=== PATIENT | female | born 1990 | race Caucasian/White ===

== ENCOUNTER 2019-05-08 15:14 | Inpatient (IN) | payer MEDICAID ==
[2019-05-08] MEDS ORDERED: Ondansetron 4 MG/2 ML SDV IVPUSH PRN (15:34)
[2019-05-08] MEDS ORDERED: Sodium Chloride 0.9% 10 ML Syringe FLUSH PRN (15:34)
[2019-05-08] MEDS ORDERED: Ampicillin 2 GM in Sodium Chloride 0.9% 100 ML IV ONE (15:34)
[2019-05-08] MEDS ORDERED: Oxytocin/Lactated Ringers 10 UNIT/1,000 ML BAG IV SCH ×2 (15:45)
[2019-05-08] MEDS ORDERED: Ampicillin 2 GM AdvVial IV ONE (15:48)
[2019-05-08] MEDS ORDERED: Lactated Ringers 1,000 ML ONE (15:48)
[2019-05-08] MEDS: Lactated Ringers 1,000 ML IV SCH (16:05)
--- NOTE | 2019-05-08 16:32 | PCM.LDHP ---
L&D History of Present Illness - General Date of Service: 05/08/19 Admit Problem/Dx: Patient Status Order with Admit Dx/Problem 05/08/19 15:36 Patient Status [ADT] Routine Admission Diagnosis/Problem Admission Diagnosis/Problem Source of Information: Patient History Limitations: Reports: No Limitations - History of Present Illness Introduction:: Amina Lim is a 28 year old female at 37 weeks 1 day by LMP (HORACIO 05/28/2019 ) who presents with spontaneous rupture membranes with clear fluid. She reports that she had a larger gush of clear fluid mixed with cream-colored discharge at around 9:30 AM. She has had intermittent clear fluid discharge throughout the day since her initial gush of fluid. She was seen by Dr. Soria in the clinic earlier today and was diagnosed with spontaneous rupture membranes on speculum exam with fluid coming from the cervix with pooling and positive nitrazine test. AmniSure test was not performed due to gross rupture of membranes on exam. She reports that she has been having irregular mild cramps since her water had broken about every 1-2 hours between contractions. She reports good movement. She denies any vaginal bleeding. Timing/Duration: Reports: sudden onset (At around 9:30 AM), intermittent ( Additional gushes of clear fluid after initial episode of water breaking) Location, : Reports: Lower back, Pelvic Quality: Reports: Throbbing Severity: Mild Improves with: Reports: None Worsens with: Reports: None Associated Symptoms: Reports: vaginal fluid, moderate amount. Denies: vaginal bleeding, vaginal discharge Present Illness Comments:: Amina Lim is a 28-year-old at 37 weeks 1 day by LMP (HORACIO 05/28/2019) who presents with spontaneous rupture of membranes. She has had routine care with Dr. Patrick starting at 10 weeks gestational age. She received flu vaccine on 02/18/2019 and Tdap on 03/02/2019. Her is complicated by: * GBS positive status based on swab. * History of genital herpes and was started on acyclovir at 35 weeks 5 days. Reports that her last outbreak was at around 33 to 34 weeks gestational age. Denies any prodromal symptoms at this time. * Gastroesophageal reflux disease in and has been using Tums to control her symptoms labs Blood type: O+ Antibody screen: Negative First trimester hematocrit/hemoglobin: 37.4%/12.8 on 11/05/2018 Platelets: 398 on 11/05/2018 Urine culture: Mixed gaurav consistent with contamination Rubella status: Immune Hepatitis B surface antigen: Negative RPR: Negative HIV: Negative Gonorrhea: Negative Chlamydia: Negative One hour glucose tolerance test: 115 Second trimester hematocrit/hemoglobin: 12.0 on 03/02/2019 Platelets: 368 on 03/02/2019 GBS status: Positive - Related Data Allergies/Adverse Reactions: Allergies Allergy/AdvReac Type Severity Reaction Status Date / Time No Known Allergies Allergy Verified 05/08/19 15:31 Home Medications: Home Meds Acyclovir 400 mg PO TID 05/08/19 [History] Calcium Carbonate [Tums] 500 mg PO 05/08/19 [History] Vits #93/Iron Fum/FA [ Formula Tablet] 05/08/19 [History] Past Medical History Genitourinary History: Reports: STD, Other (See Below) Other Genitourinary History: genital herpes 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 Para: 0 - Past Surgical History HEENT Surgical History: Reports: Oral Surgery, Tonsillectomy Musculoskeletal Surgical History: Reports: Other (See Below) Other Musculoskeletal Surgeries/Procedures:: pinky surgery 6 years ago Dermatological Surgical History: Reports: Skin Biopsy Social & Family History - Tobacco Use Smoking Status *Q: Never Smoker - Tobacco Core Measures Tobacco Use/Smoking Within Last 30 Days: No Smokeless Tobacco Use in Last 30 Days: No - Alcohol Use Alcohol Use History: No - Recreational Drug Use Recreational Drug Use: No Drug Use in Last 12 Months: No - Living Situation & Occupation Living situation: Reports: Single, with Significant Other Occupation: Employed H&P Review of Systems - Review of Systems: Review Of Systems: See Below General: Denies: Fever, Chills, Malaise, Weakness, Fatigue HEENT: Reports: Sinus Congestion. Denies: Rhinitis, Post Nasal Drip, Sore Throat, Visual Changes Pulmonary: Denies: Shortness of Breath, Wheezing, Pleuritic Chest Pain, Cough Cardiovascular: Denies: Chest Pain, Palpitations Gastrointestinal: Reports: Constipation (mild), Nausea. Denies: Abdominal Pain , Diarrhea, Vomiting Genitourinary: Denies: Dysuria, Frequency, Burning, Pain, Urgency Musculoskeletal: Denies: Back Pain Skin: Denies: Rash, Lesions Psychiatric: Denies: Depression, Anxiety Neurological: Denies: Headache L&D Exam - Exam Exam: See Below - Vital Signs Vital Signs: Last Vital Signs Temp 36.9 C 05/08/19 15:23 Pulse 120 H 05/08/19 15:23 Resp 16 05/08/19 15:23 BP 123/94 H 05/08/19 15:23 Pulse Ox 97 05/08/19 15:23 Weight: 103.6 kg - OB Specific Contraction Duration (sec): 30-60 Contraction Frequency (min): 2-3 Contraction Intensity: Mild Movement: Active Heart Tones: Present Heart Tones per Min: 145 (+15 x 15 accelerations, no decelerations) Heart Rate (FHR) Variability: Moderate (6-25 bmp) Presentation: Vertex Estimated Weight: 7.5-8 pounds by Gilson - Fatima Score Fatima Score Cervix Position: Anterior Fatima Score Consistency: Medium Fatima Score Effacement: >80% (80%) Fatima Score Dilation: 1-2 cm (2.5 cm) Fatima Score 's Station: -3 Fatima Score Total: 7 - Exam General: Alert, Oriented HEENT: Conjunctiva Clear, EOMI Neck: Supple, Trachea Midline Lungs: Clear to Auscultation, Normal Respiratory Effort Cardiovascular: Regular Rate, Regular Rhythm GI/Abdominal Exam: Soft, Non-Tender, No Distention, Other (Gravid). No: Guarding, Rigid, Rebound Genitourinary: Normal external exam Extremities: Normal Inspection, Pedal Edema (1+ on bilateral lower extremities to knees) Skin: Warm, Dry, Intact Psychiatric: Alert, Normal Affect, Normal Mood - Patient Data Lab Results Last 24 hrs: Laboratory Results - last 24 hr 05/08/19 Range/Units 15:47 WBC 16.20 H (3.98-10.04) K/mm3 RBC 4.19 (3.98-5.22) M/mm3 Hgb 11.9 D (11.2-15.7) gm/dl Hct 36.5 (34.1-44.9) % MCV 87.1 D (79.4-94.8) fl MCH 28.4 (25.6-32.2) pg MCHC 32.6 (32.2-35.5) g/dl RDW Std Deviation 41.6 (36.4-46.3) fL Plt Count 366 D (182-369) K/mm3 MPV 8.5 L (9.4-12.3) fl Neut % (Auto) 70.7 (34.0-71.1) % Lymph % (Auto) 20.2 (19.3-51.7) % [place] % (Auto) 7.0 (4.7-12.5) % Eos % (Auto) 1.6 (0.7-5.8) Baso % (Auto) 0.1 (0.1-1.2) % Neut # (Auto) 11.44 H (1.56-6.13) K/mm3 Lymph # (Auto) 3.27 (1.18-3.74) K/mm3 [place] # (Auto) 1.14 H (0.24-0.36) K/mm3 Eos # (Auto) 0.26 (0.04-0.36) K/mm3 Baso # (Auto) 0.02 (0.01-0.08) K/mm3 Result Diagrams: 05/08/19 15:47 - Problem List (1) 37 weeks gestation of SNOMED Code(s): 60223860 ICD Code: Z3A.37 - 37 WEEKS GESTATION OF Status: Acute Current Visit: Yes (2) History of herpes genitalis SNOMED Code(s): 909969329 ICD Code: Z86.19 - PERSONAL HISTORY OF OTHER INFECTIOUS AND PARASITIC DISEASES Status: Acute Current Visit: Yes (3) GBS (group B Streptococcus carrier), +RV culture, currently SNOMED Code(s): 7359968053839, 252625162, 4129289870703 ICD Code: O99.820 - STREPTOCOCCUS B CARRIER STATE COMPLICATING Status: Acute Current Visit: Yes (4) Gastroesophageal reflux in SNOMED Code(s): 36590337055492997 ICD Code: O99.619 - DISEASES OF THE DGSTV SYS COMP , UNSP TRIMESTER ; K21.9 - GASTRO-ESOPHAGEAL REFLUX DISEASE WITHOUT ESOPHAGITIS Status: Acute Current Visit: Yes Problem List Initiated/Reviewed/Updated: Yes Orders Last 24hrs: Active Orders 24 hr Category Date Time Status Patient Status [ADT] Routine ADT 05/08/19 15:36 Active Activity as Tolerated [RC] PFP Care 05/08/19 15:36 Active Communication Order [RC] ASDIRECTED Care 05/08/19 15:36 Active Heart Tones [RC] ASDIRECTED Care 05/08/19 15:37 Active Non Stress Test [RC] PER UNIT ROUTINE Care 05/08/19 15:36 Active Notify Provider [RC] PFP Care 05/08/19 15:36 Active Notify Provider [RC] PRN Care 05/08/19 15:36 Active Peripheral IV Care [RC] . DIRECTED Care 05/08/19 15:37 Active Vital Signs [RC] PER UNIT ROUTINE Care 05/08/19 15:36 Active Regular Diet [DIET] Diet 05/08/19 Dinner Active BLOOD BANK HOLD SPECIMEN [BBK] Routine Lab 05/08/19 15:34 Ordered RAPID PLASMA REAGIN,RPR [CHEM] Routine Lab 05/08/19 15:47 Received Ampicillin 1 gm Med 05/08/19 20:00 Active Sodium Chloride 0.9% [Normal Saline] 100 ml IV Q4H Lactated Ringers [Ringers, Lactated] 1,000 ml Med 05/08/19 15:45 Active IV ASDIRECTED Nalbuphine [Nubain] Med 05/08/19 15:34 Active 10 mg IVPUSH Q2H PRN Ondansetron [Zofran] Med 05/08/19 15:34 Active 4 mg IVPUSH Q4H PRN Oxytocin/Lactated Ringers [Pitocin in LR 10 Units/1,000 Med 05/08/19 15:45 Active ML] 10 unit in 1,000 ml IV .CONTINUOUS Oxytocin/Lactated Ringers [Pitocin in LR 10 Units/1,000 Med 05/08/19 15:45 Active ML] 10 unit in 1,000 ml IV TITRATE Sodium Chloride 0.9% [Saline Flush] Med 05/08/19 15:34 Active 10 ml FLUSH ASDIRECTED PRN Electronic Heart Tones Ext w TOCO [WOMSER] Oth 05/08/19 15:36 Ordered Routine Electronic Heart Tones Internal [WOMSER] Per Unit Oth 05/08/19 15:36 Ordered Routine Peripheral IV Insertion Adult [OM.PC] Routine Oth 05/08/19 15:36 Ordered Resuscitation Status Routine Resus Stat 05/08/19 15:34 Ordered Medication Orders Ampicillin Sodium 1 gm/ Sodium (Chloride) 100 mls @ 200 mls/hr IV Q4H BRUNILDA Lactated Ringer's (Ringers, Lactated) 1,000 mls @ 100 mls/hr IV ASDIRECTED BRUNILDA Last Admin: 05/08/19 16:05 Dose: 100 mls/hr Oxytocin/Lactated Ringer's (Pitocin In Lr 10 Units/1,000 Ml) 10 unit in 1,000 mls @ 500 mls/hr IV .CONTINUOUS BRUNILDA Oxytocin/Lactated Ringer's (Pitocin In Lr 10 Units/1,000 Ml) 10 unit in 1,000 mls @ 12 mls/hr IV TITRATE BRUNILDA; Protocol Last Admin: 05/08/19 16:05 Dose: 2 munits/min, 12 mls/hr Nalbuphine HCl (Nubain) 10 mg IVPUSH Q2H PRN PRN Reason: Pain Ondansetron HCl (Zofran) 4 mg IVPUSH Q4H PRN PRN Reason: Nausea/Vomiting Sodium Chloride (Saline Flush) 10 ml FLUSH ASDIRECTED PRN PRN Reason: Keep Vein Open Assessment/Plan Comment:: Refer to observation for spontaneous rupture of membranes Start Pitocin for augmentation of labor due to very irregular contractions per patient report every 1-[address] IV and have Lactated Ringer's at 125 ml/hr May have small amounts of regular diet Activity as tolerated May have epidural as desired Plans to breast-feed after delivery Start on ampicillin 2 g now and have 1 g every 4 hours after for GBS prophylaxis Anticipate vaginal delivery unless otherwise indicated Chucho Ventura MD 4:51 PM 05/08/2019
[2019-05-08] MEDS: Ampicillin 1 GM in Sodium Chloride 0.9% 100 ML IV SCH (20:17)
[2019-05-08] MEDS: Calcium Carbonate 500 MG Tab.Chew PO PRN (22:46)
[2019-05-09] MEDS ORDERED: fentaNYL 100 MCG/2 ML SDV ONE
[2019-05-09] MEDS: Ampicillin 1 GM in Sodium Chloride 0.9% 100 ML IV SCH ×5 (00:17→16:16)
[2019-05-09] MEDS: Calcium Carbonate 500 MG Tab.Chew PO PRN ×2 (00:52→03:00)
[2019-05-09] MEDS ORDERED: Oxytocin/Lactated Ringers 20 UNIT/1,000 ML BAG IV SCH (02:30)
[2019-05-09] MEDS: Nalbuphine 10 MG/ML Syringe IVPUSH PRN ×2 (06:13→12:17)
[2019-05-09] MEDS: Lactated Ringers 1,000 ML IV SCH ×2 (08:45→14:39)
--- NOTE | 2019-05-09 08:47 | PCM.PNLD ---
Labor Progress Note - VS & Meds Vital Signs: Last Vital Signs Temp 36.9 C 05/08/19 15:23 Pulse 120 H 05/08/19 15:23 Resp 16 05/08/19 15:23 BP 123/94 H 05/08/19 15:23 Pulse Ox 97 05/08/19 15:23 Active Medications: Current Medications Calcium Carbonate/Glycine (Tums) 1,000 mg PO Q2HR PRN PRN Reason: Indigestion Last Admin: 05/09/19 03:00 Dose: 1,000 mg Ampicillin Sodium 1 gm/ Sodium (Chloride) 100 mls @ 200 mls/hr IV Q4H BRUNILDA Last Admin: 05/09/19 04:06 Dose: 200 mls/hr Lactated Ringer's (Ringers, Lactated) 1,000 mls @ 100 mls/hr IV ASDIRECTED BRUNILDA Last Admin: 05/08/19 16:05 Dose: 100 mls/hr Oxytocin/Lactated Ringer's (Pitocin In Lr 10 Units/1,000 Ml) 10 unit in 1,000 mls @ 500 mls/hr IV .CONTINUOUS BRUNILDA Oxytocin/Lactated Ringer's (Pitocin In Lr 10 Units/1,000 Ml) 10 unit in 1,000 mls @ 12 mls/hr IV TITRATE BRUNILDA; Protocol Last Titration: 05/09/19 02:18 Dose: 22 munits/min, 132 mls/hr Oxytocin/Lactated Ringer's (Pitocin In Lr 20 Units/1,000 Ml) 20 unit in 1,000 mls @ 66 mls/hr IV TITRATE BRUNILDA; Protocol Last Admin: 05/09/19 02:50 Dose: 66 mls/hr Nalbuphine HCl (Nubain) 10 mg IVPUSH Q2H PRN PRN Reason: Pain Last Admin: 05/09/19 06:13 Dose: 10 mg Ondansetron HCl (Zofran) 4 mg IVPUSH Q4H PRN PRN Reason: Nausea/Vomiting Sodium Chloride (Saline Flush) 10 ml FLUSH ASDIRECTED PRN PRN Reason: Keep Vein Open Discontinued Medications Ampicillin Sodium (Ampicillin) Confirm Administered Dose 2 gm IV .STK-MED ONE Stop: 05/08/19 15:49 Last Admin: 05/08/19 16:10 Dose: Not Given Ampicillin Sodium 2 gm/ Sodium (Chloride) 100 mls @ 200 mls/hr IV ONETIME ONE Stop: 05/08/19 16:03 Last Admin: 05/08/19 16:05 Dose: 200 mls/hr Lactated Ringer's (Ringers, Lactated) Confirm Administered Dose 1,000 mls @ as directed .ROUTE .STK-MED ONE Stop: 05/08/19 15:49 Last Admin: 05/08/19 16:10 Dose: Not Given - Uterine Contractions Uterine Monitoring Mode: External [place] (Difficult to assess uterine contractions ) Contraction Intensity: Mild to Moderate - Monitoring Monitor Mode: Doppler/Auscultation Heart Rate (FHR) Baseline: 130 Heart Rate (FHR) Variability: Moderate (6-25 bmp) Accelerations: Present, 15x15 Decelerations: None Strip Review: Category I - Vaginal Exam Dilation (cm): 3.5 cm Effacement (Percent): 80 Station: -2 Cervical Position: Midposition Sterile Vaginal Exam Performed By: Chucho Ventura Vaginal Exam Comment: Artificial rupture of membranes of forebag performed with return of clear fluid. Mother and tolerated procedure without difficulty. - Labor Progress (Free Text) Labor Progress: * Patient with slow progress despite being on 30 milliunits/min of Pitocin. Patient has made progression from 2.5 cm to 3.5 cm over the course of 15 hours. Discussion with patient regarding management options at this time including continued use of Pitocin, rupture of membranes of 4 bag of present, stopping Pitocin and switching to oral Cytotec, placement of epidural for pelvic relaxation or section. Nurse had previously noted that there may have been a fore bag present on her exam. Patient open to options at this time and desired to have rupture of 4 bag performed and stopping Pitocin and switching to Cytotec. * On exam there was noted to be a fore bag of the amniotic sac. Artificial rupture of membranes of this fore bag was performed with return of clear fluid. * We will stop Pitocin at this time and switch to Cytotec 25 mcg sublingual every 2 hours for up to a total of 5 doses. We will delay administration of Cytotec for 30 minutes after stopping Pitocin to allow the Pitocin to wear off * Continue ampicillin 1 g IV every 4 hours for GBS prophylaxis * Patient may continue with small amounts of regular diet as tolerated * Routine vitals * Continuous monitoring as able * Anticipate vaginal delivery unless otherwise indicated at this time Chucho Ventura MD 8:47 AM 05/09/2019
[2019-05-09] MEDS ORDERED: Misoprostol 25 MCG (1/4 of 100 MCG) Tab PO SCH (09:00)
--- NOTE | 2019-05-09 12:21 | PCM.PNLD ---
Labor Progress Note - VS & Meds Vital Signs: Last Vital Signs Temp 36.9 C 05/08/19 15:23 Pulse 120 H 05/08/19 15:23 Resp 16 05/08/19 15:23 BP 123/94 H 05/08/19 15:23 Pulse Ox 97 05/08/19 15:23 Active Medications: Current Medications Calcium Carbonate/Glycine (Tums) 1,000 mg PO Q2HR PRN PRN Reason: Indigestion Last Admin: 05/09/19 03:00 Dose: 1,000 mg Ampicillin Sodium 1 gm/ Sodium (Chloride) 100 mls @ 200 mls/hr IV Q4H BRUNILDA Last Admin: 05/09/19 08:45 Dose: 200 mls/hr Lactated Ringer's (Ringers, Lactated) 1,000 mls @ 100 mls/hr IV ASDIRECTED BRUNILDA Last Admin: 05/09/19 08:45 Dose: 100 mls/hr Oxytocin/Lactated Ringer's (Pitocin In Lr 10 Units/1,000 Ml) 10 unit in 1,000 mls @ 500 mls/hr IV .CONTINUOUS BRUNILDA Oxytocin/Lactated Ringer's (Pitocin In Lr 10 Units/1,000 Ml) 10 unit in 1,000 mls @ 12 mls/hr IV TITRATE BRUNILDA; Protocol Last Titration: 05/09/19 02:18 Dose: 22 munits/min, 132 mls/hr Oxytocin/Lactated Ringer's (Pitocin In Lr 20 Units/1,000 Ml) 20 unit in 1,000 mls @ 66 mls/hr IV TITRATE BRUNILDA; Protocol Last Admin: 05/09/19 02:50 Dose: 66 mls/hr Nalbuphine HCl (Nubain) 10 mg IVPUSH Q2H PRN PRN Reason: Pain Last Admin: 05/09/19 06:13 Dose: 10 mg Ondansetron HCl (Zofran) 4 mg IVPUSH Q4H PRN PRN Reason: Nausea/Vomiting Sodium Chloride (Saline Flush) 10 ml FLUSH ASDIRECTED PRN PRN Reason: Keep Vein Open Discontinued Medications Ampicillin Sodium (Ampicillin) Confirm Administered Dose 2 gm IV .STK-MED ONE Stop: 05/08/19 15:49 Last Admin: 05/08/19 16:10 Dose: Not Given Ampicillin Sodium 2 gm/ Sodium (Chloride) 100 mls @ 200 mls/hr IV ONETIME ONE Stop: 05/08/19 16:03 Last Admin: 05/08/19 16:05 Dose: 200 mls/hr Lactated Ringer's (Ringers, Lactated) Confirm Administered Dose 1,000 mls @ as directed .ROUTE .STK-MED ONE Stop: 05/08/19 15:49 Last Admin: 05/08/19 16:10 Dose: Not Given Misoprostol (Cytotec) 25 mcg PO Q2H BRUNILDA Stop: 05/09/19 17:01 - Uterine Contractions Uterine Monitoring Mode: External [place] (Difficult to assess uterine contractions with patient stating every 1-2 minutes) Contraction Frequency (min): 2-3 Contraction Duration (sec): 30-60 Contraction Intensity: Moderate - Monitoring Monitor Mode: Doppler/Auscultation Heart Rate (FHR) Baseline: 135 Heart Rate (FHR) Variability: Moderate (6-25 bmp) Accelerations: Present, 15x15 Decelerations: None Strip Review: Category I - Vaginal Exam Dilation (cm): 4 cm Effacement (Percent): 90 Station: -2 Cervical Position: Midposition Sterile Vaginal Exam Performed By: Chucho Ventura - Labor Progress (Free Text) Labor Progress: * Patient with some progression of cervical dilation after AROM and contractions without augmentation. Discussed with patient that due to minimal amount of change would recommend for augmentation with Pitocin. Recommend for restarting Pitocin at this time. Patient in agreement with this plan. * Restart Pitocin per unit protocol * Continuous monitoring * Routine vitals * Anticipate vaginal delivery unless otherwise indicated Chucho Ventura MD 12:21 PM 05/09/2019
[2019-05-09] MEDS ORDERED: diphenhydrAMINE 50 MG/ML SDV IVPUSH PRN (14:22)
[2019-05-09] MEDS ORDERED: ePHEDrine 50 MG/ML SDV IVPUSH PRN (14:22)
[2019-05-09] MEDS ORDERED: fentaNYL 100 MCG/2 ML SDV EPIDUR PRN (14:22)
[2019-05-09] MEDS ORDERED: fentaNYL/Bupivacaine/NS 2 MCG-0.125% 250 ML EPIDUR PRN ×2 (14:22→14:52)
--- NOTE | 2019-05-09 15:18 | PCM.PREANE ---
Preanesthetic Assessment - Procedure Proposed Procedure: Continuous Labor Epidural - Anesthesia/Transfusion/Family Hx Anesthesia History: Prior Anesthesia Without Reaction Family History of Anesthesia Reaction: No Transfusion History: No Prior Transfusion(s) Additional History: No history of difficulty with anesthesia or with intubation per patient - Review of Systems General: No Symptoms Pulmonary: No Symptoms Cardiovascular: No Symptoms Gastrointestinal: Nausea Neurological: No Symptoms Other: Reports: None - Physical Assessment NPO Status Date: 05/09/19 (full stomach) Vital Signs: Last Vital Signs Temp 36.9 C 05/08/19 15:23 Pulse 120 H 05/08/19 15:23 Resp 16 05/08/19 15:23 BP 123/94 H 05/08/19 15:23 Pulse Ox 97 05/08/19 15:23 Height: 5 ft 5 in Weight: 103.6 kg ASA Class: 1 Mental Status: Alert & Oriented x3 Airway Class: Mallampati = 2 Dentition: Reports: Normal Dentition Thyro-Mental Finger Breadths: 3 Mouth Opening Finger Breadths: 3 ROM/Head Extension: Full Lungs: Clear to Auscultation, Normal Respiratory Effort Cardiovascular: Regular Rate, Regular Rhythm - Lab Values: Laboratory Last Values WBC 16.20 K/mm3 (3.98-10.04) H 05/08/19 15:47 RBC 4.19 M/mm3 (3.98-5.22) 05/08/19 15:47 Hgb 11.9 gm/dl (11.2-15.7) D 05/08/19 15:47 Hct 36.5 % (34.1-44.9) 05/08/19 15:47 MCV 87.1 fl (79.4-94.8) D 05/08/19 15:47 MCH 28.4 pg (25.6-32.2) 05/08/19 15:47 MCHC 32.6 g/dl (32.2-35.5) 05/08/19 15:47 RDW Std Deviation 41.6 fL (36.4-46.3) 05/08/19 15:47 Plt Count 366 K/mm3 (182-369) D 05/08/19 15:47 MPV 8.5 fl (9.4-12.3) L 05/08/19 15:47 Neut % (Auto) 70.7 % (34.0-71.1) 05/08/19 15:47 Lymph % (Auto) 20.2 % (19.3-51.7) 05/08/19 15:47 [place] % (Auto) 7.0 % (4.7-12.5) 05/08/19 15:47 Eos % (Auto) 1.6 (0.7-5.8) 05/08/19 15:47 Baso % (Auto) 0.1 % (0.1-1.2) 05/08/19 15:47 Neut # (Auto) 11.44 K/mm3 (1.56-6.13) H 05/08/19 15:47 Lymph # (Auto) 3.27 K/mm3 (1.18-3.74) 05/08/19 15:47 [place] # (Auto) 1.14 K/mm3 (0.24-0.36) H 05/08/19 15:47 Eos # (Auto) 0.26 K/mm3 (0.04-0.36) 05/08/19 15:47 Baso # (Auto) 0.02 K/mm3 (0.01-0.08) 05/08/19 15:47 RPR Non-reactive (NONREACTIVE) 05/08/19 15:47 - Allergies Allergies/Adverse Reactions: Allergies Allergy/AdvReac Type Severity Reaction Status Date / Time No Known Allergies Allergy Verified 05/08/19 15:31 - Acknowledgements Anesthesia Type Planned: Epidural Pt an Appropriate Candidate for the Planned Anesthesia: Yes Alternatives and Risks of Anesthesia Discussed w Pt/Guardian: Yes Pt/Guardian Understands and Agrees with Anesthesia Plan: Yes PreAnesthesia Questionnaire Genitourinary History: Reports: STD, Other (See Below) Other Genitourinary History: genital herpes 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: - Past Surgical History HEENT Surgical History: Reports: Oral Surgery, Tonsillectomy Musculoskeletal Surgical History: Reports: Other (See Below) Other Musculoskeletal Surgeries/Procedures:: pinky surgery 6 years ago Dermatological Surgical History: Reports: Skin Biopsy - SUBSTANCE USE Smoking Status *Q: Never Smoker Recreational Drug Use History: No - HOME MEDS Home Medications: Home Meds Acyclovir 400 mg PO TID 05/08/19 [History] Calcium Carbonate [Tums] 500 mg PO 01/17/20 [History] Vits #93/Iron Fum/FA [ Formula Tablet] 05/08/19 [History] - CURRENT (IN HOUSE) MEDS Current Meds: Current Medications Calcium Carbonate/Glycine (Tums) 1,000 mg PO Q2HR PRN PRN Reason: Indigestion Last Admin: 05/09/19 03:00 Dose: 1,000 mg Diphenhydramine HCl (Benadryl) 25 mg IVPUSH Q6H PRN PRN Reason: pruritis Ephedrine Sulfate (Ephedrine Sulfate) 5 mg IVPUSH ASDIRECTED PRN PRN Reason: Hypotension Fentanyl (Sublimaze) 100 mcg EPIDUR Q3H PRN PRN Reason: Pain Last Admin: 05/09/19 14:50 Dose: 100 mcg Fentanyl/Bupivacaine HCl (Fentanyl/Bupivacaine/Ns 2 Mcg-0.125% 250 Ml) 10 ml EPIDUR CONTINUOUS PRN PRN Reason: Pain Ampicillin Sodium 1 gm/ Sodium (Chloride) 100 mls @ 200 mls/hr IV Q4H BRUNILDA Last Admin: 05/09/19 12:20 Dose: 200 mls/hr Lactated Ringer's (Ringers, Lactated) 1,000 mls @ 100 mls/hr IV ASDIRECTED BRUNILDA Last Admin: 05/09/19 14:39 Dose: 100 mls/hr Oxytocin/Lactated Ringer's (Pitocin In Lr 10 Units/1,000 Ml) 10 unit in 1,000 mls @ 500 mls/hr IV .CONTINUOUS BRUNILDA Oxytocin/Lactated Ringer's (Pitocin In Lr 10 Units/1,000 Ml) 10 unit in 1,000 mls @ 12 mls/hr IV TITRATE BRUNILDA; Protocol Last Titration: 05/09/19 02:18 Dose: 22 munits/min, 132 mls/hr Oxytocin/Lactated Ringer's (Pitocin In Lr 20 Units/1,000 Ml) 20 unit in 1,000 mls @ 66 mls/hr IV TITRATE BRUNILDA; Protocol Last Admin: 05/09/19 02:50 Dose: 66 mls/hr Nalbuphine HCl (Nubain) 10 mg IVPUSH Q2H PRN PRN Reason: Pain Last Admin: 05/09/19 12:17 Dose: 10 mg Ondansetron HCl (Zofran) 4 mg IVPUSH Q4H PRN PRN Reason: Nausea/Vomiting Last Admin: 05/09/19 14:16 Dose: 4 mg Sodium Chloride (Saline Flush) 10 ml FLUSH ASDIRECTED PRN PRN Reason: Keep Vein Open Discontinued Medications Ampicillin Sodium (Ampicillin) Confirm Administered Dose 2 gm IV .STK-MED ONE Stop: 05/08/19 15:49 Last Admin: 05/08/19 16:10 Dose: Not Given Fentanyl/Bupivacaine HCl (Fentanyl/Bupivacaine/Ns 2 Mcg-0.125% 250 Ml) 10 ml EPIDUR CONTINUOUS PRN PRN Reason: Pain Ampicillin Sodium 2 gm/ Sodium (Chloride) 100 mls @ 200 mls/hr IV ONETIME ONE Stop: 05/08/19 16:03 Last Admin: 05/08/19 16:05 Dose: 200 mls/hr Lactated Ringer's (Ringers, Lactated) Confirm Administered Dose 1,000 mls @ as directed .ROUTE .STK-MED ONE Stop: 05/08/19 15:49 Last Admin: 05/08/19 16:10 Dose: Not Given Misoprostol (Cytotec) 25 mcg PO Q2H BRUNILDA Stop: 05/09/19 17:01
--- NOTE | 2019-05-09 15:23 | PCM.SN ---
- Free Text/Narrative Note: Initial attempt was at more caudal location, approximately L4-5. Good loss of resistance with NS. Catheter passed tip of needle, but wouldn't thread further. Attempted to flush catheter with 1 mL NS and "float" catheter. When this didn't work I elected to pull catheter and needle simultaneously and moved to superior adjacent level where catheter now resides. On the second attempt the catheter threaded easily as usual with HARRIET. No concerns at this time. Prior to leaving the room the patient was already experiencing improved analgesia.
--- NOTE | 2019-05-09 16:35 | PCM.PNLD ---
Labor Progress Note - VS & Meds Vital Signs: Last Vital Signs Temp 36.9 C 05/08/19 15:23 Pulse 120 H 05/08/19 15:23 Resp 16 05/08/19 15:23 BP 123/94 H 05/08/19 15:23 Pulse Ox 97 05/08/19 15:23 Active Medications: Current Medications Calcium Carbonate/Glycine (Tums) 1,000 mg PO Q2HR PRN PRN Reason: Indigestion Last Admin: 05/09/19 03:00 Dose: 1,000 mg Diphenhydramine HCl (Benadryl) 25 mg IVPUSH Q6H PRN PRN Reason: pruritis Ephedrine Sulfate (Ephedrine Sulfate) 5 mg IVPUSH ASDIRECTED PRN PRN Reason: Hypotension Fentanyl (Sublimaze) 100 mcg EPIDUR Q3H PRN PRN Reason: Pain Last Admin: 05/09/19 14:50 Dose: 100 mcg Fentanyl/Bupivacaine HCl (Fentanyl/Bupivacaine/Ns 2 Mcg-0.125% 250 Ml) 10 ml EPIDUR CONTINUOUS PRN PRN Reason: Pain Last Admin: 05/09/19 15:23 Dose: 250 ml Ampicillin Sodium 1 gm/ Sodium (Chloride) 100 mls @ 200 mls/hr IV Q4H BRUNILDA Last Admin: 05/09/19 16:16 Dose: 200 mls/hr Lactated Ringer's (Ringers, Lactated) 1,000 mls @ 100 mls/hr IV ASDIRECTED BRUNILDA Last Admin: 05/09/19 14:39 Dose: 100 mls/hr Oxytocin/Lactated Ringer's (Pitocin In Lr 10 Units/1,000 Ml) 10 unit in 1,000 mls @ 500 mls/hr IV .CONTINUOUS BRUNILDA Oxytocin/Lactated Ringer's (Pitocin In Lr 10 Units/1,000 Ml) 10 unit in 1,000 mls @ 12 mls/hr IV TITRATE BRUNILDA; Protocol Last Titration: 05/09/19 02:18 Dose: 22 munits/min, 132 mls/hr Oxytocin/Lactated Ringer's (Pitocin In Lr 20 Units/1,000 Ml) 20 unit in 1,000 mls @ 66 mls/hr IV TITRATE BRUNILDA; Protocol Last Admin: 05/09/19 02:50 Dose: 66 mls/hr Nalbuphine HCl (Nubain) 10 mg IVPUSH Q2H PRN PRN Reason: Pain Last Admin: 05/09/19 12:17 Dose: 10 mg Ondansetron HCl (Zofran) 4 mg IVPUSH Q4H PRN PRN Reason: Nausea/Vomiting Last Admin: 05/09/19 14:16 Dose: 4 mg Sodium Chloride (Saline Flush) 10 ml FLUSH ASDIRECTED PRN PRN Reason: Keep Vein Open Discontinued Medications Ampicillin Sodium (Ampicillin) Confirm Administered Dose 2 gm IV .STK-MED ONE Stop: 05/08/19 15:49 Last Admin: 05/08/19 16:10 Dose: Not Given Fentanyl/Bupivacaine HCl (Fentanyl/Bupivacaine/Ns 2 Mcg-0.125% 250 Ml) 10 ml EPIDUR CONTINUOUS PRN PRN Reason: Pain Ampicillin Sodium 2 gm/ Sodium (Chloride) 100 mls @ 200 mls/hr IV ONETIME ONE Stop: 05/08/19 16:03 Last Admin: 05/08/19 16:05 Dose: 200 mls/hr Lactated Ringer's (Ringers, Lactated) Confirm Administered Dose 1,000 mls @ as directed .ROUTE .STK-MED ONE Stop: 05/08/19 15:49 Last Admin: 05/08/19 16:10 Dose: Not Given Misoprostol (Cytotec) 25 mcg PO Q2H BRUNILDA Stop: 05/09/19 17:01 - Uterine Contractions Uterine Monitoring Mode: External [place] (Difficult to assess uterine contractions with patient stating every 1-2 minutes) Contraction Frequency (min): 2-5 Contraction Duration (sec): 30-60 Contraction Intensity: Moderate to Strong - Monitoring Monitor Mode: Doppler/Auscultation Heart Rate (FHR) Baseline: 125 Heart Rate (FHR) Variability: Moderate (6-25 bmp) Accelerations: Present, 15x15 Decelerations: Early, Recurrent (>50% x 20 min) Strip Review: Category I - Vaginal Exam Dilation (cm): 9 cm Effacement (Percent): 100 Station: 1 Cervical Position: Anterior Sterile Vaginal Exam Performed By: Chucho Ventura Vaginal Exam Comment: Intrauterine pressure catheter inserted due to recurrent decelerations that were difficult to assess whether they were early versus late decelerations. IUPC placed in posterior cervix without difficulty. Mother and tolerated procedure without difficulty. - Labor Progress (Free Text) Labor Progress: * Patient with good progression at this time * Patient comfortable with epidural in place * Continue Pitocin for induction of labor * Routine vitals * Anticipate vaginal delivery unless otherwise indicated Chucho Ventura MD 4:36 PM 05/09/2019
--- NOTE | 2019-05-09 19:28 | PCM.DEL ---
L & D Note - General Info Date of Service: 05/09/19 Mother's Due Date: 05/28/19 - Delivery Note Labor: Spontaneous, Augmented by ARM, Augmented by Oxytocin Infant Delivery Method: Spontaneous Vaginal Delivery-Single Presentation: Right Occiput Anterior (CHANTELLE) Nuchal Cord: None Prep: Povidone-Iodine (Betadine Anesthesia Type: Epidural Amniotic Fluid Description: Clear Episiotomy Type: None Laceration: 2nd Degree (midline perineal, repaired with 3-0 Vicryl) Suture type: Vicryl Suture size: 3-0 Placenta: Intact, Spontaneous Cord: 3 Vessels Estimated Blood Loss: 300 Resuscitation Needed: Yes : Suctioned, Bulb Syringe, Stimulated, Warmed, Cropsey Used, Warmer Used Provider: Chucho Ventura Score 1 min: 9 Score 5 min: 9 Second Stage Interventions: Reports: Pushing Effectively, Pushing, Pulls Own Legs Back, Pushing, Stirrups/Leg Supports Delivery Comments (Free Text/Narrative):: Stage I: Amina Lim was admitted for spontaneous rupture membranes with clear fluid that was diagnosed in the clinic with positive pooling and positive nitrazine test. On admission her cervix was dilated to 2.5 cm. She was GBS positive and was started on ampicillin for GBS prophylaxis. She received a total of 7 doses prior to delivery. She was started on Pitocin for augmentation of labor with very irregular contractions that were every hour or so. She made slow progression through hospital day #1 and 2 in the morning of hospital day #2. On exam in the morning of hospital day #2 there is noted to be a fore bag and she had artificial rupture membranes of this fore bag with return of clear fluid. She had discontinuation of her Pitocin in the morning of hospital day #2 after rupture of the fore bag. She was making slow progress through the morning and was restarted on Pitocin for augmentation of labor. She was given an epidural for anesthesia. She started to have decelerations and heart rate monitoring with inability to monitor her the contractions and an intrauterine pressure catheter was placed without difficulty for monitoring of her contractions in relation to the decelerations. She was noted to have a early decelerations after placement of the IUPC. She progressed to complete and pushing. Stage II: On 05/09/2019 she had a normal vaginal delivery of a live male at 18:45. Apgars of 9 & 9. Weight of 2880 g (6 lbs 5.6 oz). There was no nuchal cord. Infant was delivered in CHANTELLE position. The cord was doubly clamped and cut by father of the . Infant was placed on mother's abdomen. Stage III: She had a spontaneous delivery of an intact placenta in [place] presentation. Three vessel cord. She was given pitocin and fundal massage. She had a second-degree midline perineal laceration that was repaired with 3-0 Vicryl. She was noted to have a small area of bleeding near the previous second -degree laceration on the left side near the hymenal ring in the posterior vagina that had bleeding noted. A single [id number] suture with 3-0 Vicryl was placed and was noted be hemostatic after suturing. Mom and baby were stable to recovery. EBL of 300 mL. Chucho Ventura MD 7:24 PM 05/09/2019 - General Info Date of Service: 05/09/19 - Patient Data Vitals - Most Recent: Last Vital Signs Temp 36.9 C 05/08/19 15:23 Pulse 120 H 05/08/19 15:23 Resp 16 05/08/19 15:23 BP 123/94 H 05/08/19 15:23 Pulse Ox 97 05/08/19 15:23 Weight - Most Recent: 103.6 kg I&O - Last 24 Hours: Intake & Output 05/09/19 05/09/19 05/09/19 06:59 14:59 22:59 Intake Total 0 Balance 0 Lab Results Last 24 Hours: Laboratory Results - last 24 hr 05/08/19 Range/Units 15:47 RPR Non-reactive (NONREACTIVE) Med Orders - Current: Current Medications Calcium Carbonate/Glycine (Tums) 1,000 mg PO Q2HR PRN PRN Reason: Indigestion Last Admin: 05/09/19 03:00 Dose: 1,000 mg Diphenhydramine HCl (Benadryl) 25 mg IVPUSH Q6H PRN PRN Reason: pruritis Ephedrine Sulfate (Ephedrine Sulfate) 5 mg IVPUSH ASDIRECTED PRN PRN Reason: Hypotension Fentanyl (Sublimaze) 100 mcg EPIDUR Q3H PRN PRN Reason: Pain Last Admin: 05/09/19 14:50 Dose: 100 mcg Fentanyl/Bupivacaine HCl (Fentanyl/Bupivacaine/Ns 2 Mcg-0.125% 250 Ml) 10 ml EPIDUR CONTINUOUS PRN PRN Reason: Pain Last Admin: 05/09/19 15:23 Dose: 250 ml Ampicillin Sodium 1 gm/ Sodium (Chloride) 100 mls @ 200 mls/hr IV Q4H BRUNILDA Last Admin: 05/09/19 16:16 Dose: 200 mls/hr Lactated Ringer's (Ringers, Lactated) 1,000 mls @ 100 mls/hr IV ASDIRECTED BRUNILDA Last Admin: 05/09/19 14:39 Dose: 100 mls/hr Oxytocin/Lactated Ringer's (Pitocin In Lr 10 Units/1,000 Ml) 10 unit in 1,000 mls @ 500 mls/hr IV .CONTINUOUS BRUNILDA Oxytocin/Lactated Ringer's (Pitocin In Lr 10 Units/1,000 Ml) 10 unit in 1,000 mls @ 12 mls/hr IV TITRATE BRUNILDA; Protocol Last Titration: 05/09/19 02:18 Dose: 22 munits/min, 132 mls/hr Oxytocin/Lactated Ringer's (Pitocin In Lr 20 Units/1,000 Ml) 20 unit in 1,000 mls @ 66 mls/hr IV TITRATE BRUNILDA; Protocol Last Admin: 05/09/19 02:50 Dose: 66 mls/hr Nalbuphine HCl (Nubain) 10 mg IVPUSH Q2H PRN PRN Reason: Pain Last Admin: 05/09/19 12:17 Dose: 10 mg Ondansetron HCl (Zofran) 4 mg IVPUSH Q4H PRN PRN Reason: Nausea/Vomiting Last Admin: 05/09/19 14:16 Dose: 4 mg Sodium Chloride (Saline Flush) 10 ml FLUSH ASDIRECTED PRN PRN Reason: Keep Vein Open Discontinued Medications Ampicillin Sodium (Ampicillin) Confirm Administered Dose 2 gm IV .STK-MED ONE Stop: 05/08/19 15:49 Last Admin: 05/08/19 16:10 Dose: Not Given Fentanyl/Bupivacaine HCl (Fentanyl/Bupivacaine/Ns 2 Mcg-0.125% 250 Ml) 10 ml EPIDUR CONTINUOUS PRN PRN Reason: Pain Ampicillin Sodium 2 gm/ Sodium (Chloride) 100 mls @ 200 mls/hr IV ONETIME ONE Stop: 05/08/19 16:03 Last Admin: 05/08/19 16:05 Dose: 200 mls/hr Lactated Ringer's (Ringers, Lactated) Confirm Administered Dose 1,000 mls @ as directed .ROUTE .STK-MED ONE Stop: 05/08/19 15:49 Last Admin: 05/08/19 16:10 Dose: Not Given Misoprostol (Cytotec) 25 mcg PO Q2H BRUNILDA Stop: 05/09/19 17:01 - Problem List & Annotations (1) 37 weeks gestation of SNOMED Code(s): 24887912 Code(s): Z3A.37 - 37 WEEKS GESTATION OF Status: Acute Current Visit: Yes (2) History of herpes genitalis SNOMED Code(s): 665601861 Code(s): Z86.19 - PERSONAL HISTORY OF OTHER INFECTIOUS AND PARASITIC DISEASES Status: Acute Current Visit: Yes (3) GBS (group B Streptococcus carrier), +RV culture, currently SNOMED Code(s): 4208288348914, 678107621, 7291324523373 Code(s): O99.820 - STREPTOCOCCUS B CARRIER STATE COMPLICATING Status: Acute Current Visit: Yes (4) Gastroesophageal reflux in SNOMED Code(s): 73910557068579728 Code(s): O99.619 - DISEASES OF THE DGSTV SYS COMP , UNSP TRIMESTER; K21.9 - GASTRO-ESOPHAGEAL REFLUX DISEASE WITHOUT ESOPHAGITIS Status: Acute Current Visit: Yes (5) Vaginal delivery SNOMED Code(s): 603754286 Code(s): O80 - ENCOUNTER FOR FULL-TERM UNCOMPLICATED DELIVERY Status: Acute Current Visit: Yes (6) Second degree perineal laceration during delivery SNOMED Code(s): 2875324 Code(s): O70.1 - SECOND DEGREE PERINEAL LACERATION DURING DELIVERY Status: Acute Current Visit: Yes - Problem List Review Problem List Initiated/Reviewed/Updated: Yes - My Orders Last 24 Hours: My Active Orders 05/08/19 20:00 Ampicillin 1 gm Sodium Chloride 0.9% [Normal Saline] 100 ml IV Q4H 05/08/19 22:08 Calcium Carbonate [Tums] 1,000 mg PO Q2HR PRN 05/09/19 02:30 Oxytocin/Lactated Ringers [Pitocin in LR 20 Units/1,000 ML] 20 unit in 1,000 ml IV TITRATE 05/09/19 14:52 Bupivicaine/fentaNYL/NS [fentaNYL/Bupivacaine/NS 2 MCG-0.125% 250 ML] 10 ml EPIDUR CONTINUOUS PRN 05/09/19 19:13 Patient Status Manage Transfer [TRANSFER] Routine - Plan Plan:: Admit to inpatient following normal spontaneous vaginal delivery Continue Pitocin per unit protocol following delivery of placenta and lactated Ringer's until tolerating regular diet Regular diet Vitals per unit routine Ibuprofen and Tylenol for pain control Assist with breast-feeding as needed Continue to monitor lochia Anticipate discharge home on day #2 Chucho Ventura MD 7:24 PM 05/09/2019
[2019-05-09] MEDS ORDERED: Witch Hazel Medicated Pads 40/Jar TOP PRN (19:37)
[2019-05-09] MEDS ORDERED: Oxytocin/Lactated Ringers 10 UNIT/1,000 ML BAG IV SCH (19:37)
[2019-05-09] MEDS ORDERED: Hydrocortisone Acetate 25 MG Supp RECTAL PRN (19:37)
[2019-05-09] MEDS ORDERED: Benzocaine/Menthol 20%-0.5% Spray 56 GM Canister TOP PRN (19:37)
[2019-05-10] MEDS: Ibuprofen 600 MG Tab PO PRN ×3 (02:28→22:17)
[2019-05-10] MEDS: Prenatal Multivitamin with Calcium/Folic Acid/Iron Tab PO SCH (09:07)
[2019-05-10] MEDS: Docusate Sodium 100 MG Cap PO PRN (09:07)
--- NOTE | 2019-05-10 09:23 | PCM.SN ---
- Free Text/Narrative Note: Post Progress Note PPD # 1 Subjective: Doing well overall. Ambulating without difficulty. Lochia minimal. Reports increased amount of bleeding with breast-feeding but does not completely soak a pad when she has this additional bleeding. Voiding without difficulty. Tolerating regular diet without nausea or vomiting. Pain controlled with oral medications. Reports increased amount of cramping with breast-feeding but it is improved with use of Motrin. Breast-feeding with minimal difficulty. Objective: Vitals: Vital Signs - 8 hr 05/10/19 03:47 Temperature 36.9 C Pulse, 66 Peripheral Respiratory 16 Rate Blood Pressure 114/75 O2 Sat by Pulse 94 L Oximetry Physical Exam General: Alert and oriented, no acute distress Lungs: Clear to auscultation bilaterally Heart: Regular rate and rhythm Abdomen: Soft, minimal appropriate tenderness, non-distended, fundus midline, nontender, and 1 fingerbreadth below the umbilicus Extremities: No edema Laboratory Tests 05/08/19 05/08/19 Range/Units 15:47 15:47 WBC 16.20 H (3.98-10.04) K/mm3 RBC 4.19 (3.98-5.22) M/mm3 Hgb 11.9 D (11.2-15.7) gm/dl Hct 36.5 (34.1-44.9) % MCV 87.1 D (79.4-94.8) fl MCH 28.4 (25.6-32.2) pg MCHC 32.6 (32.2-35.5) g/dl RDW Std Deviation 41.6 (36.4-46.3) fL Plt Count 366 D (182-369) K/mm3 MPV 8.5 L (9.4-12.3) fl Neut % (Auto) 70.7 (34.0-71.1) % Lymph % (Auto) 20.2 (19.3-51.7) % [place] % (Auto) 7.0 (4.7-12.5) % Eos % (Auto) 1.6 (0.7-5.8) Baso % (Auto) 0.1 (0.1-1.2) % Neut # (Auto) 11.44 H (1.56-6.13) K/mm3 Lymph # (Auto) 3.27 (1.18-3.74) K/mm3 [place] # (Auto) 1.14 H (0.24-0.36) K/mm3 Eos # (Auto) 0.26 (0.04-0.36) K/mm3 Baso # (Auto) 0.02 (0.01-0.08) K/mm3 RPR Non-reactive (NONREACTIVE) ASSESSMENT: 28-year-old female -0-0-1 s/p normal vaginal delivery PPD #1, complicated by GBS positive and received a total of 7 doses of ampicillin prior to delivery , history of genital herpes and gastroesophageal reflux disease PLAN: Doing well Breast-feeding with minimal difficulty. Assist as needed Lochia minimal. Continue to monitor for appropriate lochia. Continue routine care Anticipate discharge home tomorrow Chucho Ventura MD 9:22 AM 05/10/2019
[2019-05-10] MEDS: Acetaminophen 325 MG Tab PO PRN ×2 (11:22→18:00)
--- NOTE | 2019-05-10 14:10 | PCM48HPAN ---
Post Anesthesia Note - EVALUATION WITHIN 48HRS OF ANESTHETIC Vital Signs in Normal Range: Yes Patient Participated in Evaluation: Yes Respiratory Function Stable: Yes Airway Patent: Yes Cardiovascular Function Stable: Yes Hydration Status Stable: Yes Pain Control Satisfactory: Yes Nausea and Vomiting Control Satisfactory: Yes Mental Status Recovered: Yes Vital Signs: Last Vital Signs Temp 36.6 C 05/10/19 08:11 Pulse 75 05/10/19 08:11 Resp 16 05/10/19 08:11 BP 119/84 05/10/19 08:11 Pulse Ox 98 05/10/19 08:11
[2019-05-11] MEDS: Acetaminophen 325 MG Tab PO PRN (03:48)
[2019-05-11] MEDS: Ibuprofen 600 MG Tab PO PRN (07:48)
--- NOTE | 2019-05-11 08:58 | PCM.SN ---
- Free Text/Narrative Note: Post Progress Note PPD # 2 Subjective: Doing well overall. Ambulating without difficulty. Lochia minimal and decreased from yesterday. Voiding without difficulty. Tolerating regular diet without nausea or vomiting. Pain controlled with oral medications. Reports cramping has improved from previous day. Breast-feeding with small amounts of formula supplementation with minimal difficulty. Objective: Vitals: Vital Signs - 24 hr 05/10/19 05/10/19 05/11/19 14:31 20:10 03:52 Temperature 36.7 C 36.7 C 36.6 C Pulse, 69 79 65 Peripheral Respiratory 16 14 14 Rate Blood Pressure 113/69 115/61 121/63 O2 Sat by Pulse 99 99 96 Oximetry Physical Exam General: Alert and oriented, no acute distress Lungs: Clear to auscultation bilaterally Heart: Regular rate and rhythm Abdomen: Soft, minimal appropriate tenderness, non-distended, fundus midline, nontender, and 1 fingerbreadth below the umbilicus Extremities: No edema ASSESSMENT: 28-year-old female -0-0-1 s/p normal vaginal delivery PPD #2, complicated by GBS positive and received a total of 7 doses of ampicillin prior to delivery , history of genital herpes and gastroesophageal reflux disease PLAN: Doing well Breast-feeding with small amounts of formula supplementation with minimal difficulty. Assist as needed Lochia minimal. Continue to monitor for appropriate lochia. Continue routine care Discharge home today Chucho Ventura MD 8:56 AM 05/11/2019
--- NOTE | 2019-05-11 09:13 | PCM.DCSUM1 ---
Discharge Summary - Hospital Course Free Text/Narrative:: - General Info Date of Service: 05/09/19 Mother's Due Date: 05/28/19 - Delivery Note Labor: Spontaneous, Augmented by ARM, Augmented by Oxytocin Infant Delivery Method: Spontaneous Vaginal Delivery-Single Presentation: Right Occiput Anterior (CHANTELLE) Nuchal Cord: None Prep: Povidone-Iodine (Betadine Anesthesia Type: Epidural Amniotic Fluid Description: Clear Episiotomy Type: None Laceration: 2nd Degree (midline perineal, repaired with 3-0 Vicryl) Suture type: Vicryl Suture size: 3-0 Placenta: Intact, Spontaneous Cord: 3 Vessels Estimated Blood Loss: 300 Resuscitation Needed: Yes [place]: Suctioned, Bulb Syringe, Stimulated, Warmed, [place] Used, Warmer Used Provider: Chucho Ventura Score 1 min: 9 Score 5 min: 9 Second Stage Interventions: Reports: Pushing Effectively, Pushing, Pulls Own Legs Back, Pushing, Stirrups/Leg Supports Delivery Comments (Free Text/Narrative):: Stage I: Aimna Lim was admitted for spontaneous rupture membranes with clear fluid that was diagnosed in the clinic with positive pooling and positive nitrazine test. On admission her cervix was dilated to 2.5 cm. She was GBS positive and was started on ampicillin for GBS prophylaxis. She received a total of 7 doses prior to delivery. She was started on Pitocin for augmentation of labor with very irregular contractions that were every hour or so. She made slow progression through hospital day #1 and 2 in the morning of hospital day #2. On exam in the morning of hospital day #2 there is noted to be a fore bag and she had artificial rupture membranes of this fore bag with return of clear fluid. She had discontinuation of her Pitocin in the morning of hospital day #2 after rupture of the fore bag. She was making slow progress through the morning and was restarted on Pitocin for augmentation of labor. She was given an epidural for anesthesia. She started to have decelerations and heart rate monitoring with inability to monitor her the contractions and an intrauterine pressure catheter was placed without difficulty for monitoring of her contractions in relation to the decelerations. She was noted to have a early decelerations after placement of the IUPC. She progressed to complete and pushing. Stage II: On 05/09/2019 she had a normal vaginal delivery of a live male infant at 18:45. Apgars of 9 & 9. Weight of 2880 g (6 lbs 5.6 oz). There was no nuchal cord. was delivered in CHANTELLE position. The cord was doubly clamped and cut by father of the infant. was placed on mother's abdomen. Stage III: She had a spontaneous delivery of an intact placenta in [place] presentation. Three vessel cord. She was given pitocin and fundal massage. She had a second-degree midline perineal laceration that was repaired with 3-0 Vicryl. She was noted to have a small area of bleeding near the previous second -degree laceration on the left side near the hymenal ring in the posterior vagina that had bleeding noted. A single [id number] suture with 3-0 Vicryl was placed and was noted be hemostatic after suturing. Mom and baby were stable to recovery. EBL of 300 mL. HPI Initial Comments: - General Info Date of Service: 05/09/19 Mother's Due Date: 05/28/19 - Delivery Note Labor: Spontaneous, Augmented by ARM, Augmented by Oxytocin Infant Delivery Method: Spontaneous Vaginal Delivery-Single Presentation: Right Occiput Anterior (CHANTELLE) Nuchal Cord: None Prep: Povidone-Iodine (Betadine Anesthesia Type: Epidural Amniotic Fluid Description: Clear Episiotomy Type: None Laceration: 2nd Degree (midline perineal, repaired with 3-0 Vicryl) Suture type: Vicryl Suture size: 3-0 Placenta: Intact, Spontaneous Cord: 3 Vessels Estimated Blood Loss: 300 Resuscitation Needed: Yes : Suctioned, Bulb Syringe, Stimulated, Warmed, [place] Used, Warmer Used Provider: Chucho Ventura Score 1 min: 9 Score 5 min: 9 Second Stage Interventions: Reports: Pushing Effectively, Pushing, Pulls Own Legs Back, Pushing, Stirrups/Leg Supports Delivery Comments (Free Text/Narrative):: Stage I: Amina Lim was admitted for spontaneous rupture membranes with clear fluid that was diagnosed in the clinic with positive pooling and positive nitrazine test. On admission her cervix was dilated to 2.5 cm. She was GBS positive and was started on ampicillin for GBS prophylaxis. She received a total of 7 doses prior to delivery. She was started on Pitocin for augmentation of labor with very irregular contractions that were every hour or so. She made slow progression through hospital day #1 and 2 in the morning of hospital day #2. On exam in the morning of hospital day #2 there is noted to be a fore bag and she had artificial rupture membranes of this fore bag with return of clear fluid. She had discontinuation of her Pitocin in the morning of hospital day #2 after rupture of the fore bag. She was making slow progress through the morning and was restarted on Pitocin for augmentation of labor. She was given an epidural for anesthesia. She started to have decelerations and heart rate monitoring with inability to monitor her the contractions and an intrauterine pressure catheter was placed without difficulty for monitoring of her contractions in relation to the decelerations. She was noted to have a early decelerations after placement of the IUPC. She progressed to complete and pushing. Stage II: On 05/09/2019 she had a normal vaginal delivery of a live male infant at 18:45. Apgars of 9 & 9. Weight of 2880 g (6 lbs 5.6 oz). There was no nuchal cord. Infant was delivered in CHANTELLE position. The cord was doubly clamped and cut by father of the . was placed on mother's abdomen. Stage III: She had a spontaneous delivery of an intact placenta in [place] presentation. Three vessel cord. She was given pitocin and fundal massage. She had a second-degree midline perineal laceration that was repaired with 3-0 Vicryl. She was noted to have a small area of bleeding near the previous second -degree laceration on the left side near the hymenal ring in the posterior vagina that had bleeding noted. A single [id number] suture with 3-0 Vicryl was placed and was noted be hemostatic after suturing. Mom and baby were stable to recovery. EBL of 300 mL. Brief History: - General Info. Date of Service: 05/09/19. Mother's Due Date: 05/28/19. - Delivery Note. Labor: Spontaneous, Augmented by ARM, Augmented by Oxytocin. Infant Delivery Method: Spontaneous Vaginal Delivery-Single. Presentation: Right Occiput Anterior (CHANTELLE). Nuchal Cord: None. Prep: Povidone- Iodine (Betadine. Anesthesia Type: Epidural. Amniotic Fluid Description: Clear. Episiotomy Type: None. Laceration: 2nd Degree (midline perineal, repaired with 3-0 Vicryl). Suture type: Vicryl. Suture size: 3-0. Placenta: Intact, Spontaneous. Cord: 3 Vessels. Estimated Blood Loss: 300. Resuscitation Needed: Yes. [place]: Suctioned, Bulb Syringe, Stimulated, Warmed , Garfield Used, Warmer Used. Provider: Chucho Venutra. Score 1 min: 9. Score 5 min: 9. Second Stage Interventions: Reports: Pushing Effectively, Pushing, Pulls Own Legs Back, Pushing, Stirrups/Leg Supports. Delivery Comments (Free Text/Narrative):: Stage I: Amina Lim was admitted for spontaneous rupture membranes with clear fluid that was diagnosed in the clinic with positive pooling and positive nitrazine test. On admission her cervix was dilated to 2.5 cm. She was GBS positive and was started on ampicillin for GBS prophylaxis. She received a total of 7 doses prior to delivery. She was started on Pitocin for augmentation of labor with very irregular contractions that were every hour or so. She made slow progression through hospital day #1 and 2 in the morning of hospital day #2. On exam in the morning of hospital day #2 there is noted to be a fore bag and she had artificial rupture membranes of this fore bag with return of clear fluid. She had discontinuation of her Pitocin in the morning of hospital day #2 after rupture of the fore bag. She was making slow progress through the morning and was restarted on Pitocin for augmentation of labor. She was given an epidural for anesthesia. She started to have decelerations and heart rate monitoring with inability to monitor her the contractions and an intrauterine pressure catheter was placed without difficulty for monitoring of her contractions in relation to the decelerations. She was noted to have a early decelerations after placement of the IUPC. She progressed to complete and pushing. Stage II: On 05/09/2019 she had a normal vaginal delivery of a live male at 18:45. Apgars of 9 & 9. Weight of 2880 g (6 lbs 5.6 oz). There was no nuchal cord. Infant was delivered in CHANETLLE position. The cord was doubly clamped and cut by father of the infant. was placed on mother's abdomen. Stage III: She had a spontaneous delivery of an intact placenta in [place] presentation. Three vessel cord. She was given pitocin and fundal massage. She had a second-degree midline perineal laceration that was repaired with 3-0 Vicryl. She was noted to have a small area of bleeding near the previous second -degree laceration on the left side near the hymenal ring in the posterior vagina that had bleeding noted. A single [id number] suture with 3-0 Vicryl was placed and was noted be hemostatic after suturing. Mom and baby were stable to recovery. EBL of 300 mL. Diagnosis: Stroke: No - Discharge Data Discharge Date: 05/11/19 Discharge Disposition: Home, Self-Care 01 Condition: Good - Referral to Home Health Primary Care Physician: Tamar Patrick MD - Discharge Diagnosis/Problem(s) (1) 37 weeks gestation of SNOMED Code(s): 03198157 ICD Code: Z3A.37 - 37 WEEKS GESTATION OF Status: Acute Current Visit: Yes (2) History of herpes genitalis SNOMED Code(s): 454343267 ICD Code: Z86.19 - PERSONAL HISTORY OF OTHER INFECTIOUS AND PARASITIC DISEASES Status: Acute Current Visit: Yes (3) GBS (group B Streptococcus carrier), +RV culture, currently SNOMED Code(s): 5263196087428, 460150258, 1265132620943 ICD Code: O99.820 - STREPTOCOCCUS B CARRIER STATE COMPLICATING Status: Acute Current Visit: Yes (4) Gastroesophageal reflux in SNOMED Code(s): 33896031322908314 ICD Code: O99.619 - DISEASES OF THE DGSTV SYS COMP , UNSP TRIMESTER ; K21.9 - GASTRO-ESOPHAGEAL REFLUX DISEASE WITHOUT ESOPHAGITIS Status: Acute Current Visit: Yes (5) Vaginal delivery SNOMED Code(s): 116763260 ICD Code: O80 - ENCOUNTER FOR FULL-TERM UNCOMPLICATED DELIVERY Status: Acute Current Visit: Yes (6) Second degree perineal laceration during delivery SNOMED Code(s): 3694825 ICD Code: O70.1 - SECOND DEGREE PERINEAL LACERATION DURING DELIVERY Status : Acute Current Visit: Yes - Patient Summary/Data Complications: None Consults: None Hospital Course: Amina Lim was admitted for spontaneous rupture of membranes with clear fluid that was diagnosed in the clinic with positive pooling and positive nitrazine test. On admission her cervix was dilated to 2.5 cm. She was GBS positive and was started on ampicillin for GBS prophylaxis. She received a total of 7 doses prior to delivery. She was given pitocin for augmentation. She had artificial rupture of membranes of a fore bag with clear fluid. She had discontinuation of her Pitocin in the morning of hospital day #2 after this rupture of the fore bag. She was restarted on Pitocin for augmentation of labor after slow progression of cervical dilation. She was given an epidural for anesthesia. She was having decelerations with difficulty monitoring her contractions and and intrauterine pressure catheter was placed without difficulty. She progressed to complete and began pushing. On 05/09/2019 she had a normal vaginal delivery of a live male at 18:45. Apgars of 9 and 9. Weight of 2880 g (6 pounds 5.6 ounces). Her course was uneventful. Her pain was well controlled and she had minimal lochia. She was ambulating, tolerating a regular diet and voiding normally. She was breast-feeding with small amounts of formula supplementation with minimal difficulty. She was afebrile and her hematocrit was 36.5 on admission. She desired to be discharged home on the morning of PPD #2. Her blood type is O+. - Patient Instructions Diet: Regular Diet as Tolerated Activity: Apply Ice, As Tolerated Activity, Other: Nothing in the vagina for 6 weeks Driving: May Drive Today Showering/Bathing: May Shower Notify Provider of: Fever, Increased Pain, Swelling and Redness, Drainage, Nausea and/or Vomiting Other/Special Instructions: Please contact your physician's office if you have heavy vaginal bleeding enough to soak a pad in less than an hour for several hours. Monitor for any signs of an infection in the breasts with severe pain or redness of the breast. - Discharge Plan *PRESCRIPTION DRUG MONITORING PROGRAM REVIEWED*: Not Applicable *COPY OF PRESCRIPTION DRUG MONITORING REPORT IN PATIENT VALENCIA: Not Applicable Home Medications: Home Meds Acyclovir 400 mg PO TID 05/08/19 [History] Calcium Carbonate [Tums] 500 mg PO 05/08/19 [History] Vits #93/Iron Fum/FA [ Formula Tablet] 05/08/19 [History] Acetaminophen [Tylenol] 650 mg PO Q6H PRN tablet 05/11/19 [Rx] Benzocaine/Menthol [[facility] [place]] 1 spray TOP ASDIRECTED PRN canister 05/11/19 [Rx] Docusate Sodium [Colace] 100 mg PO BID PRN cap 05/11/19 [Rx] Hydrocortisone Acetate [Anucort-HC] 25 mg RECTAL BID PRN supp 05/11/19 [Rx] Ibuprofen [Motrin] 600 mg PO Q6H PRN tablet 05/11/19 [Rx] Mouna Mccall [Tucks] 1 pad TOP ASDIRECTED PRN pad 05/11/19 [Rx] Patient Handouts: Vaginal Delivery, Care After, Care of a Perineal Tear Referrals: Tamar Patrick MD [Primary Care Provider] - (Follow-up in 3 to 6 weeks for routine visit or earlier as needed for any other problems as they may arise.) - Discharge Summary/Plan Comment DC Time >30 min.: No - Patient Data Vitals - Most Recent: Last Vital Signs Temp 36.6 C 05/11/19 03:52 Pulse 65 05/11/19 03:52 Resp 14 05/11/19 03:52 BP 121/63 05/11/19 03:52 Pulse Ox 96 05/11/19 03:52 Weight - Most Recent: 103.6 kg Med Orders - Current: Current Medications Acetaminophen (Tylenol) 650 mg PO Q6H PRN PRN Reason: mild pain or fever Last Admin: 05/11/19 03:48 Dose: 650 mg Benzocaine/Menthol ([facility] [place]) 0 gm TOP ASDIRECTED PRN PRN Reason: Perineal Comfort Measure Docusate Sodium (Colace) 100 mg PO BID PRN PRN Reason: Constipation Last Admin: 05/10/19 09:07 Dose: 100 mg Hydrocortisone Acetate (Anucort-Hc) 25 mg RECTAL BID PRN PRN Reason: Hemorrhoid pain Oxytocin/Lactated Ringer's (Pitocin In Lr 10 Units/1,000 Ml) 10 unit in 1,000 mls @ 100 mls/hr IV TITRATE BRUNILDA; Protocol Ibuprofen (Motrin) 600 mg PO Q6H PRN PRN Reason: Mild pain or fever Last Admin: 05/11/19 07:48 Dose: 600 mg Prenat Multivit/Pump Back/Iron/Folic Ac ( Plus Iron) 1 each PO DAILY BRUNILDA Last Admin: 05/10/19 09:07 Dose: 1 each Mouna Mccall (Tucks) 1 pad TOP ASDIRECTED PRN PRN Reason: Perineal Comfort Measure Discontinued Medications Ampicillin Sodium (Ampicillin) Confirm Administered Dose 2 gm IV .STK-MED ONE Stop: 05/08/19 15:49 Last Admin: 05/08/19 16:10 Dose: Not Given Calcium Carbonate/Glycine (Tums) 1,000 mg PO Q2HR PRN PRN Reason: Indigestion Last Admin: 05/09/19 03:00 Dose: 1,000 mg Diphenhydramine HCl (Benadryl) 25 mg IVPUSH Q6H PRN PRN Reason: pruritis Ephedrine Sulfate (Ephedrine Sulfate) 5 mg IVPUSH ASDIRECTED PRN PRN Reason: Hypotension Fentanyl (Sublimaze) 100 mcg EPIDUR Q3H PRN PRN Reason: Pain Last Admin: 05/09/19 14:50 Dose: 100 mcg Fentanyl/Bupivacaine HCl (Fentanyl/Bupivacaine/Ns 2 Mcg-0.125% 250 Ml) 10 ml EPIDUR CONTINUOUS PRN PRN Reason: Pain Fentanyl/Bupivacaine HCl (Fentanyl/Bupivacaine/Ns 2 Mcg-0.125% 250 Ml) 10 ml EPIDUR CONTINUOUS PRN PRN Reason: Pain Last Admin: 05/09/19 15:23 Dose: 250 ml Ampicillin Sodium 2 gm/ Sodium (Chloride) 100 mls @ 200 mls/hr IV ONETIME ONE Stop: 05/08/19 16:03 Last Admin: 05/08/19 16:05 Dose: 200 mls/hr Ampicillin Sodium 1 gm/ Sodium (Chloride) 100 mls @ 200 mls/hr IV Q4H BRUNILDA Last Admin: 05/09/19 16:16 Dose: 200 mls/hr Lactated Ringer's (Ringers, Lactated) 1,000 mls @ 100 mls/hr IV ASDIRECTED BRUNILDA Last Admin: 05/09/19 14:39 Dose: 100 mls/hr Oxytocin/Lactated Ringer's (Pitocin In Lr 10 Units/1,000 Ml) 10 unit in 1,000 mls @ 500 mls/hr IV .CONTINUOUS BRUNILDA Oxytocin/Lactated Ringer's (Pitocin In Lr 10 Units/1,000 Ml) 10 unit in 1,000 mls @ 12 mls/hr IV TITRATE BRUNILDA; Protocol Last Titration: 05/09/19 02:18 Dose: 22 munits/min, 132 mls/hr Lactated Ringer's (Ringers, Lactated) Confirm Administered Dose 1,000 mls @ as directed .ROUTE .STK-MED ONE Stop: 05/08/19 15:49 Last Admin: 05/08/19 16:10 Dose: Not Given Oxytocin/Lactated Ringer's (Pitocin In Lr 20 Units/1,000 Ml) 20 unit in 1,000 mls @ 66 mls/hr IV TITRATE BRUNILDA; Protocol Last Admin: 05/09/19 02:50 Dose: 66 mls/hr Misoprostol (Cytotec) 25 mcg PO Q2H BRUNILDA Stop: 05/09/19 17:01 Last Admin: 05/10/19 00:51 Dose: Not Given Nalbuphine HCl (Nubain) 10 mg IVPUSH Q2H PRN PRN Reason: Pain Last Admin: 05/09/19 12:17 Dose: 10 mg Ondansetron HCl (Zofran) 4 mg IVPUSH Q4H PRN PRN Reason: Nausea/Vomiting Last Admin: 05/09/19 14:16 Dose: 4 mg Sodium Chloride (Saline Flush) 10 ml FLUSH ASDIRECTED PRN PRN Reason: Keep Vein Open
[2019-05-11] MEDS: Docusate Sodium 100 MG Cap PO PRN (09:23)
[2019-05-11] MEDS: Prenatal Multivitamin with Calcium/Folic Acid/Iron Tab PO SCH (09:23)
== END 2019-05-11 11:35 | disposition home or self-care (01) | DRG 807 ==
LOC: JD.OBCHECK 15:14 → JD.OB 15:15 → JD.OBCHECK 15:36 → JD.OB 15:36 → OBSVTOIN 05-09 18:45 → JD.OB 05-09 18:45
PROVIDERS: ADMIT Obstetrics & Gynecology; ATTEND Obstetrics & Gynecology
PROC: 10E0XZZ Delivery of Products of Conception, External Approach (ICD-10-PCS; principal; 2019-05-09)
PROC: 0KQM0ZZ Repair Perineum Muscle, Open Approach (ICD-10-PCS; 2019-05-09)
PROC: 10907ZC Drainage of Amniotic Fluid, Therapeutic from Products of Conception, Via Natural or Artificial Opening (ICD-10-PCS; 2019-05-09)
PROC: 10H07YZ Insertion of Other Device into Products of Conception, Via Natural or Artificial Opening (ICD-10-PCS; 2019-05-09)
PROC: 3E0R3BZ Introduction of Anesthetic Agent into Spinal Canal, Percutaneous Approach (ICD-10-PCS; 2019-05-09)
PROC: 00HU33Z Insertion of Infusion Device into Spinal Canal, Percutaneous Approach (ICD-10-PCS; 2019-05-09)
DX: O99.824 Streptococcus B carrier state complicating childbirth (principal); Z37.0 Single live birth; O70.1 Second degree perineal laceration during delivery; O76 Abnormality in fetal heart rate and rhythm complicating labor and delivery; O99.62 Diseases of the digestive system complicating childbirth; K21.9 Gastro-esophageal reflux disease without esophagitis; Z3A.37 37 weeks gestation of pregnancy
CPT/HCPCS: 01967; 36415; 51702; 59025; 59409; 85025; 86592; A9270-GY; J0290; J2300; J2405; J2590; J3010; J7050; J7120